=== PATIENT | male | born 1955 | race African-American/Black ===

== ENCOUNTER 2021-12-23 01:25 | Observation (INO) ==
[2021-12-23 03:29] LABS: VBG PH 7.35 pH Units (7.32-7.42)
[2021-12-23 03:31] LABS: Hematocrit 45.6 % (37.5-50.1); Hemoglobin 15.1 g/dL (12.9-16.9); Mean Corpuscular HGB Conc 33.1 g/dL (31.6-35.5); Mean Corpuscular Hemoglobin 30.3 pg (28.0-33.3); Mean Corpuscular Volume 91.4 fL (83.0-100.0); Mean Platelet Volume 8.6 fL (9.4-12.4); Platelet Count 200 K/mcL (140-400); Red Blood Count 4.99 M/mcL (4.19-5.50); Red Cell Distribution Width 13.9 % (11.5-14.5); White Blood Count 10.4 K/mcL (4.3-11.1)
[2021-12-23 03:39] LABS: INR 1.2; Prothrombin Time 13.1 Seconds (9.4-12.1)
[2021-12-23 03:50] LABS: Alanine Aminotransferase 18 Units/L (7-52); Albumin 4.4 g/dL (3.5-5.7); Albumin/Globulin Ratio 1.3 (1.1-2.2); Alkaline Phosphatase 65 Units/L (34-104); Aspartate Amino Transferase 17 Units/L (13-39); BUN/Creatinine Ratio 21 (6-26); Bilirubin,Direct 0.2 mg/dL (0.0-0.2); Bilirubin,Indirect 0.7 mg/dL (0.0-1.0); Bilirubin,Total 0.9 mg/dL (0.3-1.0); Blood Urea Nitrogen 29 mg/dL (8-23); Calcium 9.6 mg/dL (8.6-10.3); Carbon Dioxide 22 mEq/L (23-29); Chloride 100 mEq/L (98-107); Ethanol < 10 mg/dL (Less than 10); Globulin 3.3 g/dL (2.4-3.5); Glucose 71 mg/dL (70-105); Osmolality,Calculated 282 (280-300); Potassium 4.5 mEq/L (3.5-5.1); Sodium 134 mEq/L (136-145); Total Protein 7.7 g/dL (6.4-8.9)
[2021-12-23 03:54] LABS: Troponin I 0.05 ng/mL (< 0.04)
[2021-12-23] MEDS ORDERED: Aspirin 81 MG TAB.CHEW PO ONE (03:56)
[2021-12-23] MEDS ORDERED: 0.9 % Sodium Chloride 1,000 ML IVC ONE (03:56)
[2021-12-23 04:19] LABS: Thyroid Stimulating Hormone 1.291 mcIU/mL (0.340-5.600)
[2021-12-23 04:31] LABS: Bacteria,Urine Few per hpf (None-Few); Bilirubin,Urine Negative (Negative); Blood,Urine Negative (Negative); Clarity,Urine Clear (Clear); Color,Urine Yellow (Yellow); Glucose,Urine (UA) Normal (Normal); Hyaline Casts,Urine Moderate per lpf (None Seen); Ketones,Urine 20 mg/dL (Negative); Leukocyte Esterase,Urine Negative (Negative); Mucus,Urine Few per lpf (None-Few); Nitrite,Urine Negative (Negative); PH,Urine 5.5 pH Units (5.0-8.0); Protein,Urine 30 mg/dL (Neg-Trace); RBC,Urine 0-3 per hpf (0-3); Specific Gravity,Urine 1.025 (1.010-1.025); Sperm,Urine Present per hpf (None Seen); Squamous Epithelial Cell,Urine Few per hpf (None-Few); Urobilinogen,Urine Normal (Normal); WBC,Urine 0-3 per hpf (0-3)
[2021-12-23 04:40] LABS: Amphetamine Screen,Urine Positive ng/mL (Cutoff=1000); Barbiturate Screen,Urine Negative ng/mL (Cutoff=200); Benzodiazepines Screen,Urine Positive ng/mL (Cutoff=200); Cannabinoid Screen,Urine Positive ng/mL (Cutoff = 50); Cocaine Screen,Urine Positive ng/mL (Cutoff= 300); Opiate Screen,Urine Negative ng/mL (Cutoff=300); Phencyclidine Screen,Urine Negative ng/mL (Cutoff=25)
[2021-12-23 04:48] LABS: Influenza A PCR Negative (Negative); Influenza B PCR Negative (Negative); Resp. Syncytial Virus PCR Negative (Negative)
[2021-12-23 04:49] LABS: Eosinophils # 0.2 K/mcL (0.0-0.6); Lymphocytes # 4.4 K/mcL (0.6-4.6); Monocytes # 0.4 K/mcL (0.0-1.3); Neutrophils # 5.4 K/mcL (1.6-8.9)
[2021-12-23 04:50] LABS: Platelet Estimate Normal (Normal)
[2021-12-23 04:56] LABS: Troponin I 0.05 ng/mL (< 0.04)
[2021-12-23 05:13] LABS: SARS-CoV-2 by PCR (In House) Negative (Negative)
[2021-12-23] MEDS ORDERED: Ondansetron 4 MG/2 ML VIAL IVP PRN (05:54)
[2021-12-23] MEDS ORDERED: Naloxone 0.4 MG/ML INJ IVP PRN (05:54)
[2021-12-23 06:39] LABS: Chol/HDL Ratio 2.8 (0-4.9)
[2021-12-23] MEDS: *HR* Enoxaparin 40 MG/0.4 ML SYRINGE SQ SCH (07:53)
[2021-12-23] MEDS: Acetaminophen 325 MG TABLET PO PRN ×2 (10:27→20:39)
[2021-12-23] MEDS: 0.9 % Sodium Chloride 1,000 ML IVC SCH ×2 (10:39→20:40)
[2021-12-23] MEDS ORDERED: *HR* LORazepam 2 MG/ML VIAL IVP ONE (11:38)
[2021-12-23] MEDS: Gabapentin 300 MG CAPSULE PO SCH ×2 (18:14→20:39)
[2021-12-23 18:36] VITALS: TEMP 97.6
[2021-12-23 23:04] VITALS: BP 124/74; PULSE 65; O2SAT 93
[2021-12-24 03:33] LABS: Calcium 8.3 mg/dL (8.6-10.3); Magnesium 2.1 mg/dL (1.6-2.6); Phosphorous 3.2 mg/dL (2.7-4.5); Potassium 3.9 mEq/L (3.5-5.1)
[2021-12-24] MEDS: 0.9 % Sodium Chloride 1,000 ML IVC SCH (05:55)
[2021-12-24] MEDS: *HR* Enoxaparin 40 MG/0.4 ML SYRINGE SQ SCH (07:43)
[2021-12-24] MEDS: Gabapentin 300 MG CAPSULE PO SCH (07:43)
[2021-12-24] MEDS ORDERED: hydrOXYzine pamoate 25 MG CAPSULE PO PRN (07:49)
[2021-12-24] MEDS: Acetaminophen 325 MG TABLET PO PRN (07:59)
[2021-12-24] MEDS ORDERED: Fluticasone Propionate Nasal 50 MCG/SPRAY BOTTLE NS SCH (09:00)
[2021-12-24] MEDS ORDERED: Gabapentin 300 MG CAPSULE PO SCH (09:00)
[2021-12-24] MEDS ORDERED: Iopamidol - 370 500 ML MLS IVP ONE (10:30)
[2021-12-24] MEDS ORDERED: QUEtiapine Fumarate 100 MG TABLET PO SCH (21:00)
[2021-12-24] MEDS ORDERED: traZODone 50 MG TABLET PO SCH (21:00)
== END 2021-12-24 11:18 | disposition left against medical advice (07) ==
LOC: 3BNU 01:25 → EMEROOARM 01:25 → SUATTDRO 05:58 → 3BNU 06:28
PROVIDERS: ADMIT Internal Medicine; ATTEND Internal Medicine